=== PATIENT | male | born 1965 | race Caucasian/White ===

== ENCOUNTER → 2017-05-03 | Outpatient (CLI) | payer BC ==
--- NOTE | 2017-05-03 14:57 | XR ---
EXAMINATION TYPE: XR ribs LT w pa chest xray DATE OF EXAM: 05/03/2017 COMPARISON: 03/31/2017 HISTORY: Pain TECHNIQUE: Single view of the chest 4 views of the ribs are submitted. FINDINGS: The lungs are clear. No Evidence for pneumothorax. Eighth and ninth left-sided rib fractur es are again noted with mild interval callus formation. No new fractures are seen. IMPRESSION: 1.Eighth and ninth left-sided rib fractures are again noted with mild interval callus formation.
== END | disposition home or self-care (01) ==
LOC: RADXRYALE 11:02
PROVIDERS: ATTEND Family Medicine
DX: S22.42XA Multiple fractures of ribs, left side, initial encounter for closed fracture (principal); M25.70 Osteophyte, unspecified joint

== ENCOUNTER → 2017-07-26 | Outpatient (CLI) | payer BC ==
--- NOTE | 2017-07-26 12:37 | XR ---
EXAMINATION TYPE: XR ribs LT w pa chest xray DATE OF EXAM: 07/26/2017 CLINICAL HISTORY: Left-sided rib fractures progress study. TECHNIQUE: Single frontal view of the chest is obtained. A frontal and oblique images the left-sided ribs are acquired. COMPARISON: Chest x-ray with left-sided rib x-rays May 03, 2017. CT chest March 17, 2017. FINDINGS: Slightly elevated left hemidiaphragm is redemonstrated. Slightly eventrated right hemidiaph ragm is again seen. There is no focal air space opacity, pleural effusion, or pneumothorax seen. Calc ified granuloma left lung base laterally is redemonstrated. The cardiac silhouette size is within nor mal limits. The osseous structures are intact. Dedicated images of the left-sided ribs show age-indeterminate displaced fracture of the anterolatera l left ninth rib stable in appearance. No new acute displaced rib fractures are seen. Eighth rib frac ture is not as well seen to me on current or prior study. IMPRESSION: Redemonstration of healing displaced left anterolateral ninth rib fracture. Position is s table. No new fractures are seen.
== END | disposition home or self-care (01) ==
LOC: RADXRYALE 11:55
PROVIDERS: ATTEND Family Medicine
DX: S22.32XD Fracture of one rib, left side, subsequent encounter for fracture with routine healing (principal)

== ENCOUNTER → 2018-03-27 | Outpatient (CLI) | payer BC ==
--- NOTE | 2018-03-27 15:50 | XR ---
EXAMINATION TYPE: XR ribs LT w pa chest xray DATE OF EXAM: 03/27/2018 Comparison: 07/26/2017 Clinical History: 52-year-old male left mid lateral rib pain after fall last week, [id number] CHEST PAIN,FALL INJURY Findings: The cardiomediastinal silhouette, aorta, and pulmonary vasculature are within normal limits. Suspect a calcified granuloma at the peripheral left base, stable. Lungs and pleural spaces are clear. Subtle cortical irregularity of the left lateral fifth rib. Additional displaced deformity of the lef t anterolateral eighth rib compatible with healed fracture deformity from 07/26/2017. Impression: 1. Now healed fracture deformity of the left anterolateral eighth rib. 2. Possible subtle nondisplaced left lateral fifth rib fracture. Correlate for any focal pain here. 3. No acute cardiopulmonary process.
== END | disposition home or self-care (01) ==
LOC: RADXRYALE 15:13
PROVIDERS: ATTEND Physician Assistant Medical
DX: R07.9 Chest pain, unspecified (principal)

== ENCOUNTER → 2022-06-29 | Outpatient (CLI) | payer BC ==
--- NOTE | 2022-06-29 16:15 | CT ---
EXAMINATION TYPE: CT brain wo/w con CT DLP: 2197.60 mGycm, Automated exposure control for dose reduction was used. DATE OF EXAM: 06/29/2022 4:03 PM COMPARISON: CT brain 11/22/2010. CLINICAL INDICATION:Male, 56 years old with history of R51 Headache; PHH, headache post contusion 1we ek. left side bump getting bigger TECHNIQUE: Axial CT images of the brain were obtained followed by contrast enhanced axial images of t he brain with 70 cc of ISO-view 370 IV contrast. One or more CT dose reduction strategies were utiliz ed during this examination. FINDINGS: Extra-axial spaces: No abnormal extra-axial fluid collections. Ventricular system: Within normal limits Cerebral parenchyma: No acute intraparenchymal hemorrhage or mass effect. The johns-white junction is well differentiated. No abnormal enhancement is seen after the administration of intravenous contras t. Cerebellum: Unremarkable. Mass effect: No evidence of midline shift. Intracranial vasculature: Atherosclerotic calcifications of the intracranial vessels. Soft tissues: Normal. No visualized soft tissue abnormality identified. Calvarium/osseous structures: No depressed skull fracture. Paranasal sinuses and mastoid air cells: The mastoid air cells are clear. Mild mucosal thickening of the right maxillary sinus. Hypoplasia of the bilateral frontal sinuses. Visualized orbits: Orbital contents are intact. IMPRESSION: 1. No acute intracranial process and no evidence to suggest intracranial mass. 2. No visualized soft tissue abnormality.
== END | disposition home or self-care (01) ==
LOC: RADCTMAIN 14:37
PROVIDERS: ATTEND Family Medicine
DX: S06.330A Contusion and laceration of cerebrum, unspecified, without loss of consciousness, initial encounter (principal); R51.9 Headache, unspecified
CPT/HCPCS: 82565; 84520; 70470; 36415; Q9967